=== PATIENT | male | born 1970 | race Caucasian/White ===

== ENCOUNTER 2017-12-04 03:39 | Emergency (ER) | payer OTHER ==
[~2017-12-04] VITALS: Ht 177.8 cm; Wt 108.9 kg
--- NOTE | 2017-12-04 03:56 | ED.ADGEN ---
Past History Past Medical History: Hypertension, Kidney Stones Adult General Chief Complaint Chief Complaint ".. It woke me at one am... I ve had kidney stones .. but nothing this bad.. " HPI HPI Patient is a 47 year old male who presents with severe Lt flank pain. Pt. reports he has had nausea and vomiting. Pain radiates down left flank into groin area. Patient does have a history of hypertension and has been noncompliant with his hypertensive meds. Patient does not follow-up primary care doctor at this time. Has not seen a urologist for years. No history of trauma. No history immunosuppression. Pt. has stopped his Lisinopril because of chronic cough. Review of Systems Review of Systems Constitutional: Denies fever or chills [] Eyes: Denies change in visual acuity, redness, or eye pain [] HENT: Denies nasal congestion or sore throat [] Respiratory: Denies cough or shortness of breath [] Cardiovascular: No additional information not addressed in HPI [] GI: Complaints of left flank abdominal pain, nausea, vomiting, . Denies bloody stools or diarrhea [] : Denies dysuria or hematuria [] Musculoskeletal: Denies back pain or joint pain [] Integument: Denies rash or skin lesions [] Neurologic: Denies headache, focal weakness or sensory changes [] Endocrine: Denies polyuria or polydipsia [] All other systems were reviewed and found to be within normal limits, except as documented in this note. Family History Family History Noncontributory Current Medications Current Medications Current Medications Medications (Trade) Dose Ordered Sig/Isabella Start Time Stop Time Status Last Admin Dose Admin Ciprofloxacin (Cipro) 500 mg 1X ONCE 12/04/17 06:00 12/04/17 06:01 DC 12/04/17 06:02 500 MG Diphenhydramine HCl (Benadryl) 25 mg STK-MED ONCE 12/04/17 06:18 12/04/17 06:31 DC Famotidine (Pepcid) 20 mg STK-MED ONCE 12/04/17 06:18 12/04/17 06:31 DC Ketorolac Tromethamine (Toradol) 30 mg 1X ONCE 12/04/17 04:45 12/04/17 05:21 DC Lactated Ringer's 1,000 ml @ 1,000 mls/hr Q1H 12/04/17 04:15 12/04/17 05:14 DC 12/04/17 04:24 1,000 MLS/HR Morphine Sulfate (Morphine 10mg Syringe) 10 mg STK-MED ONCE 12/04/17 04:15 12/04/17 04:16 DC Ondansetron HCl (Zofran Odt) 8 mg 1X ONCE 12/04/17 04:15 12/04/17 04:16 DC 12/04/17 04:23 8 MG Tamsulosin HCl (Flomax) 0.4 mg STK-MED ONCE 12/04/17 04:14 12/04/17 04:16 DC See nursing for home meds Allergies Allergies Allergies Coded Allergies Type Severity Reaction Last Updated Verified tetanus immune globulin Allergy Intermediate Rash 12/04/17 Yes Allergic to allergic to tetanus Physical Exam Physical Exam Constitutional: In moderately to severe acute distress, non-toxic appearance. [] HENT: Normocephalic, atraumatic, bilateral external ears normal, oropharynx moist, no oral exudates, nose normal. [] Eyes: PERRLA, EOMI, conjunctiva normal, no discharge. [] Neck: Normal range of motion, no tenderness, supple, no stridor. [] Cardiovascular: Tachycardia Heart rate regular rhythm, no murmur [] Lungs & Thorax: Bilateral breath sounds clear to auscultation [] Abdomen: Bowel sounds decreased, soft, no tenderness, no masses, no pulsatile masses. []Left flank tenderness Skin: Warm, diaphoretic, no erythema, no rash. [] Back: No tenderness, left flank CVA tenderness. [] Extremities: No tenderness, no cyanosis, no clubbing, ROM intact, no edema. [] Neurologic: Alert and oriented X 3, normal motor function, normal sensory function, no focal deficits noted. [] Psychologic: Affect anxious, judgement normal, mood normal. [] Current Patient Data Vital Signs Vital Signs Date Time Temp Pulse Resp B/P (MAP) Pulse Ox O2 Delivery O2 Flow Rate FiO2 12/04/17 05:44 53 18 160/88 (112) 97 12/04/17 05:14 Room Air 12/04/17 03:59 98.4 Lab Results Laboratory Tests Test 12/04/17 04:50 12/04/17 05:40 White Blood Count 11.4 x10^3/uL (4.0-11.0) H Red Blood Count 5.18 x10^6/uL (4.30-5.70) Hemoglobin 15.5 g/dL (13.0-17.5) Hematocrit 44.8 % (39.0-53.0) Mean Corpuscular Volume 87 fL (79-100) Mean Corpuscular Hemoglobin 30 pg (25-35) Mean Corpuscular Hemoglobin Concent 35 g/dL (31-37) Red Cell Distribution Width 13.9 % (11.5-14.5) Platelet Count 311 x10^3/uL (140-400) Neutrophils (%) (Auto) 85 % (31-73) H Lymphocytes (%) (Auto) 9 % (24-48) L Monocytes (%) (Auto) 5 % (0-9) Eosinophils (%) (Auto) 0 % (0-3) Basophils (%) (Auto) 0 % (0-3) Neutrophils # (Auto) 9.6 x10^3uL (1.8-7.7) H Lymphocytes # (Auto) 1.1 x10^3/uL (1.0-4.8) Monocytes # (Auto) 0.6 x10^3/uL (0.0-1.1) Eosinophils # (Auto) 0.0 x10^3/uL (0.0-0.7) Basophils # (Auto) 0.0 x10^3/uL (0.0-0.2) Prothrombin Time 11.0 SEC (9.4-11.4) Prothrombin Time INR 1.1 (0.9-1.1) PTT 26 SEC (23-33) Sodium Level 142 mmol/L (136-145) Potassium Level 3.5 mmol/L (3.5-5.1) Chloride Level 103 mmol/L (98-107) Carbon Dioxide Level 25 mmol/L (21-32) Anion Gap 14 (6-14) Blood Urea Nitrogen 12 mg/dL (8-26) Creatinine 1.3 mg/dL (0.7-1.3) Estimated GFR (Cockcroft-Gault) 58.9 Glucose Level 139 mg/dL (70-99) H Calcium Level 9.4 mg/dL (8.5-10.1) Total Bilirubin 0.4 mg/dL (0.2-1.0) Direct Bilirubin 0.1 mg/dL (0.0-0.2) Aspartate Amino Transferase (AST) 35 U/L (15-37) Alanine Aminotransferase (ALT) 66 U/L (16-63) H Alkaline Phosphatase 99 U/L (46-116) Total Protein 8.4 g/dL (6.4-8.2) H Albumin 4.1 g/dL (3.4-5.0) Urine Collection Type Unknown Urine Color Yellow Urine Clarity Hazy Urine pH 6.0 Urine Specific [place] 1.025 Urine Protein 100 mg/dl (NEG-TRACE) Urine Glucose (UA) Neg mg/dL (NEG) Urine Ketones (Stick) Trace mg/dL (NEG) Urine Blood Mod (NEG) Urine Nitrite Neg (NEG) Urine Bilirubin Neg (NEG) Urine Urobilinogen Dipstick 0.2 mg/dL (0.2 mg/dL) Urine Leukocyte Esterase Neg (NEG) Urine RBC 6-10 /HPF (0-2) Urine WBC 0 /HPF (0-4) Urine Squamous Epithelial Cells Occ /LPF Urine Bacteria 0 /HPF (0-FEW) Urine Mucus Slight /LPF EKG EKG My interpretation EKG shows a sinus bradycardia 54 bpm. No acute morphology.[] Radiology/Procedures Radiology/Procedures CT of abdomen shows left hydronephrosis and a proximal stone. He formal report when available. My interpretation of acute abdomen film shows multiple stones in kidney . No free air iunder the diaphragm. Old surgery clips. Push fruit juices for mild hypokalemia Course & Med Decision Making Course & Med Decision Making Pertinent Labs and Imaging studies reviewed. (See chart for details) Patient elects to follow-up with his urologist. Patient discharged on Cipro which he's taken before. Patient will take Tylenol and ibuprofen for pain.He will take Vicoprofen for marked pain. Clear fluid diet. Zofran as needed for nausea and vomiting. Patient must follow-up with primary and urologist. Patient also follow up with primary for hypertensive meds. Patient to take Flomax currently for smooth muscle relaxant. Patient take milk of magnesia for constipation as well as low magnesium level. Pt. given prescription for Bactrim given prior to discharge still some concern that he may be having allergy with Cipro. No wheezing. Possible mild erythemic rash- possible related to Morphine or even possible related to Cipro. [] Final Impression Final Impression 1. Left renal colic[] 2. Accelerated hypertension- 3. Hypomagnesemia Dragon Disclaimer Dragon Disclaimer This electronic medical record was generated, in whole or in part, using a voice recognition dictation system. VITO SHELL MD Dec 04, 2017 03:56
[2017-12-04] MEDS ORDERED: TAMSULOSIN 0.4 MG CAP.ER.24H. PO ONE (04:14)
[2017-12-04] MEDS ORDERED: KETOROLAC 30 MG/ML VIAL. ONE (04:14)
[2017-12-04] MEDS ORDERED: MORPHINE SULFATE 10 MG/ML SYRINGE. ONE (04:15)
[2017-12-04] MEDS: TAMSULOSIN 0.4 MG CAP.ER.24H. PO ONE (04:23)
[2017-12-04] MEDS: ONDANSETRON ODT 4 MG TAB.RAPDIS PO ONE (04:23)
[2017-12-04] MEDS: KETOROLAC 30 MG/ML VIAL. IV ONE ×2 (04:23→04:45)
[2017-12-04] MEDS: MORPHINE SULFATE 10 MG/ML SYRINGE. SQ ONE (04:24)
[2017-12-04] MEDS: IV RINGERS SOLUTION,LACTATED 1,000 ML IV SCH (04:24)
--- NOTE | 2017-12-04 04:57 | RAD ---
INDICATION: Severe left flank pain radiating to groin. Hx kidney stones COMPARISON: None. TECHNIQUE: Axial CT images were obtained through the abdomen and pelvis without intravenous contrast. Limited assessment of solid organ structures and vasculature secondary to lack of intravenous contrast. One or more of the following individualized dose reduction techniques were utilized for this examination: 1. Automated exposure control; 2. Adjustment of the mA and/or kV according to patient size; 3. Use of iterative reconstruction technique. FINDINGS: Moderate calcific atherosclerosis. Fat-containing left inguinal hernia. No intrahepatic bile duct dilation. Small fat-containing umbilical hernia. No peripancreatic fluid collection. Spleen unremarkable. Multiple bilateral nonobstructive renal stones are identified. Left-sided perinephric edema with hydronephrosis and hydroureter with 5 mm left proximal ureter stone. Urinary bladder is partially distended with mild prominence of the wall. There are some lobulated contour at the right kidney no right-sided hydronephrosis. No periappendiceal inflammation. No dilated loops of bowel to suggest obstruction. Degenerative changes of the spine. IMPRESSION: 1. Left-sided hydronephrosis and perinephric edema with left proximal ureter stone. There are multiple additional nonobstructive bilateral renal stones. 2. Urinary bladder is partially distended but does appear thick walled. Would correlate for possible causes such as cystitis although this could be a chronic finding. Electronically signed by: Jv Ortiz MD (12/04/2017 4:54 AM) [facility]
[2017-12-04 05:04] LABS: BASO % 0 % (0-3); EOS % 0 % (0-3); HEMATOCRIT 44.8 % (39.0-53.0); HEMOGLOBIN 15.5 g/dL (13.0-17.5); LYMPH # 1.1 x10^3/uL (1.0-4.8); LYMPH % 9 % (24-48); MEAN CORPUSCULAR HEMOGLOBIN 30 pg (25-35); MEAN CORPUSCULAR HGB CONC 35 g/dL (31-37); MEAN CORPUSCULAR VOLUME 87 fL (79-100); MONO # 0.6 x10^3/uL (0.0-1.1); MONO % 5 % (0-9); NEUT # 9.6 x10^3uL (1.8-7.7); NEUT % 85 % (31-73); PLATELET COUNT 311 x10^3/uL (140-400); RED BLOOD COUNT 5.18 x10^6/uL (4.30-5.70); RED CELL DISTRIBUTION WIDTH 13.9 % (11.5-14.5); WHITE BLOOD COUNT 11.4 x10^3/uL (4.0-11.0)
[2017-12-04 05:19] LABS: ALBUMIN 4.1 g/dL (3.4-5.0); CALCIUM 9.4 mg/dL (8.5-10.1); CREATININE 1.3 mg/dL (0.7-1.3); DIRECT BILIRUBIN 0.1 mg/dL (0.0-0.2); GFR 58.9; POTASSIUM 3.5 mmol/L (3.5-5.1); TOTAL BILIRUBIN 0.4 mg/dL (0.2-1.0); TOTAL PROTEIN 8.4 g/dL (6.4-8.2)
[2017-12-04 05:44] VITALS: BP 160/88
[2017-12-04] MEDS ORDERED: HYDR-79 PO (05:55)
[2017-12-04] MEDS ORDERED: TAMS0.4C97 PO (05:55)
[2017-12-04] MEDS ORDERED: CIPR500T94 PO (05:55)
[2017-12-04] MEDS ORDERED: ONDA8TAB12 PO (05:55)
[2017-12-04] MEDS: CIPROFLOXACIN HCL 500 MG TABLET PO ONE (06:02)
[2017-12-04 06:07] LABS: BILIRUBIN,URINE NEG (NEG); CLARITY,URINE HAZY; COLOR,URINE YELLOW; GLUCOSE,URINE NEG (NEG)
[2017-12-04 06:08] LABS: BACTERIA,URINE 0 /HPF (0-FEW); NITRITE,URINE NEG (NEG); SQUAMOUS EPITHELIAL CELL,UR OCC /LPF; UROBILINOGEN,URINE 0.2 mg/dL (0.2 mg/dL); WBC,URINE 0 /HPF (0-4)
[2017-12-04] MEDS ORDERED: diphenhydrAMINE HCL 25 MG CAPSULE PO ONE (06:18)
[2017-12-04] MEDS ORDERED: FAMOTIDINE 20 MG TABLET ONE (06:18)
[2017-12-04] MEDS: FAMOTIDINE 20 MG TABLET PO ONE (06:21)
[2017-12-04] MEDS: diphenhydrAMINE HCL 25 MG CAPSULE PO ONE (06:22)
--- NOTE | 2017-12-04 08:06 | RAD ---
Acute abdominal series to include a PA chest radiograph 12/04/2017 Clinical History: Severe left flank pain. A PA digital radiograph of the chest was obtained. Two supine and an erect AP digital radiographs of the abdomen/pelvis were obtained. No previous studies are available for comparison. The cardiac and mediastinal silhouettes are within normal limits in size and configuration. No pulmonary infiltrate is seen. No pleural effusion or pneumothorax is noted. The abdominal bowel gas pattern is nonobstructive. There is no evidence of free air. Calculi overlie both kidneys which measure 4 mm to 1 cm in size. A 4 mm calcification overlies the inferior aspect of the L3 transverse process. This likely represents a left ureteral calculus. Calcifications are seen within the pelvis consistent with phleboliths. Surgical clips are seen within the inguinal regions bilaterally. Degenerative changes are seen involving the thoracic and throughout the lumbar spine and both hips. Impression: 4 mm probable left ureteral calculus. Electronically signed by: Miguelito Knight MD (12/04/2017 8:02 AM) [facility]
--- NOTE | 2017-12-04 19:34 | EKG ---
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
== END 2017-12-04 06:30 | disposition home or self-care (01) ==
LOC: ER 03:39
DX: N23 Unspecified renal colic (principal); E83.42 Hypomagnesemia; I10 Essential (primary) hypertension
CPT/HCPCS: 36415; 74022; 74176; 80048; 80076; 81001; 85025; 85610; 85730; 93005; 96361; 96372; 96374; 99285; J1885; J2270; J7120; Q0162; Q0163

== ENCOUNTER 2021-03-03 08:28 | Inpatient (IN) | payer BC, OTHER ==
[~2021-03-03] VITALS: Ht 177.8 cm; Wt 118.0 kg
[~2021-03-03 08:28] MED LIST: CIPR500T94 PO; HYDR-1179 PO; ONDA8TAB12 PO; TAMS0.4C97 PO
[2021-03-03] MEDS ORDERED: ONDANSETRON PF 4 MG/2 ML VIAL. ONE (08:46)
[2021-03-03] MEDS ORDERED: ACETAMINOPHEN 500 MG TABLET PO ONE (08:46)
[2021-03-03] MEDS: IV NORMAL SALINE 1,000ML 1,000 ML IV SCH ×3 (09:00→17:00)
--- NOTE | 2021-03-03 09:02 | PHYS DOC ---
Past History Past Medical History: Hypertension, Kidney Stones Past Surgical History: Other Alcohol Use: None Drug Use: None Adult General Chief Complaint Chief Complaint: COUGH HPI HPI Patient is a 50-year-old male presenting for Covid-like symptoms. Reports onset was approximately 3 weeks ago without any known inciting event, ingestion, travel or known sick exposure. Nothing known makes better or worse. Patient reports he has had fluctuating upper respiratory tract symptoms, generalized body aches and occasional cramping in big muscles such as calf and forearm, also admits increased nausea and looser stools than usual in the past 48 hours. Admits he saw local urgent care last week and was diagnosed with an upper respiratory infection, states he was prescribed Augmentin but could not tolerate this medication and stopped after 48 hours. He has been at home quarantined but reports he has been more weak than usual and concerned prompting him to come in for evaluation. Patient is not vaccinated against COVID-19. Admits history of hypertension only which she has been compliant with all medication without any recent medication changes Review of Systems Review of Systems Fourteen body systems of review of systems have been reviewed. See HPI for pertinent positives and negative responses, other bateman all other systems are negative, non-pertinent or non-contributory Current Medications Current Medications Current Medications Medications (Trade) Dose Ordered Sig/Isabella Start Time Stop Time Status Last Admin Dose Admin Acetaminophen (Tylenol) 500 mg STK-MED ONCE 03/03/21 08:46 03/03/21 08:46 DC Ondansetron HCl (Zofran) 4 mg STK-MED ONCE 03/03/21 08:46 03/03/21 08:46 DC Allergies Allergies Allergies Coded Allergies Type Severity Reaction Last Updated Verified tetanus immune globulin Allergy Intermediate Rash 12/04/17 Yes Physical Exam Physical Exam Constitutional: Well developed, well nourished, no apparent distress but patient does look uncomfortable and tired HENT: Normocephalic, atraumatic, bilateral external ears normal, oropharynx moist, no oral exudates, nose normal. Eyes: PERRLA, EOMI, conjunctiva normal, no discharge. Neck: Normal range of motion, no tenderness, supple, no stridor. Cardiovascular: Heart rate regular, sinus rhythm, no murmurs rubs or gallops Lungs & Thorax: No respiratory distress or accessory muscle use of neck or abdomen noted, has scattered rales globally without any increased work of breathing Abdomen: Bowel sounds normal, soft, no tenderness, no masses, no pulsatile masses. Nonsurgical abdomen, no peritoneal signs Skin: Warm, dry, no erythema, no rash. Back: No tenderness, no CVA tenderness. Extremities: No tenderness, no cyanosis, no clubbing, ROM intact, no edema. Neurologic: Alert and oriented X 3, grossly normal motor & sensory function, no focal deficits noted. Psychologic: Affect normal, judgement normal, mood normal. Current Patient Data Vital Signs Vital Signs Date Time Temp Pulse Resp B/P (MAP) Pulse Ox O2 Delivery O2 Flow Rate FiO2 03/03/21 08:30 100.8 117 16 125/70 (88) 97 Room Air Vital Signs Date Time Temp Pulse Resp B/P (MAP) Pulse Ox O2 Delivery O2 Flow Rate FiO2 03/03/21 08:30 100.8 117 16 125/70 (88) 97 Room Air Lab Results Laboratory Tests Test 03/03/21 08:50 03/03/21 08:58 White Blood Count 9.1 x10^3/uL Red Blood Count 5.13 x10^6/uL Hemoglobin 15.8 g/dL Hematocrit 45.9 % Mean Corpuscular Volume 89 fL Mean Corpuscular Hemoglobin 31 pg Mean Corpuscular Hemoglobin Concent 35 g/dL Red Cell Distribution Width 14.2 % Platelet Count 181 x10^3/uL Neutrophils (%) (Auto) 82 % Lymphocytes (%) (Auto) 13 % Monocytes (%) (Auto) 5 % Eosinophils (%) (Auto) 0 % Basophils (%) (Auto) 0 % Neutrophils # (Auto) 7.4 x10^3uL Lymphocytes # (Auto) 1.2 x10^3/uL Monocytes # (Auto) 0.4 x10^3/uL Eosinophils # (Auto) 0.0 x10^3/uL Basophils # (Auto) 0.0 x10^3/uL Sodium Level 129 mmol/L Potassium Level 4.8 mmol/L Chloride Level 93 mmol/L Carbon Dioxide Level 20 mmol/L Anion Gap 16 Blood Urea Nitrogen 45 mg/dL Creatinine 2.0 mg/dL Estimated GFR (Cockcroft-Gault) 35.4 BUN/Creatinine Ratio 23 Glucose Level 118 mg/dL Lactic Acid Level 1.8 mmol/L Calcium Level 9.1 mg/dL Total Bilirubin 0.8 mg/dL Aspartate Amino Transf (AST/SGOT) 258 U/L Alanine Aminotransferase (ALT/SGPT) 350 U/L Alkaline Phosphatase 88 U/L Creatine Kinase 3081 U/L Troponin I Quantitative 0.022 ng/mL MN-Dkp-L-Type Natriuretic Peptide 6 pg/mL Total Protein 8.5 g/dL Albumin 4.2 g/dL Albumin/Globulin Ratio 1.0 Influenza Type A (Rapid) Negative Influenza Type B (Rapid) Negative SARS-CoV-2 Antigen (Rapid) Positive Current Medications Medications (Trade) Dose Ordered Sig/Isabella Route PRN Reason Start Time Stop Time Status Last Admin Dose Admin Acetaminophen (Tylenol) 500 mg STK-MED ONCE PO 03/03/21 08:46 03/03/21 08:46 DC Ondansetron HCl (Zofran) 4 mg STK-MED ONCE .ROUTE 03/03/21 08:46 03/03/21 08:46 DC Sodium Chloride 1,000 ml @ 1,000 mls/hr Q1H IV 03/03/21 09:00 03/03/21 09:59 DC 03/03/21 10:01 Ceftriaxone Sodium 1 gm/ Sodium Chloride 50 ml @ 100 mls/hr 1X ONCE IV 03/03/21 09:45 03/03/21 10:14 DC Azithromycin 500 mg/Sodium Chloride 250 ml @ 250 mls/hr 1X ONCE IV 03/03/21 09:45 03/03/21 10:44 03/03/21 09:59 Sodium Chloride 1,000 ml @ 1,000 mls/hr 1X ONCE IV 03/03/21 09:45 03/03/21 10:44 Acetaminophen (Tylenol) 650 mg 1X ONCE PO 03/03/21 09:45 03/03/21 09:46 DC Sodium Chloride 250 ml @ As Directed STK-MED ONCE .ROUTE 03/03/21 09:51 03/03/21 09:51 DC Sodium Chloride 50 ml @ As Directed STK-MED ONCE .ROUTE 03/03/21 09:51 03/03/21 09:51 DC Azithromycin (Zithromax) 500 mg STK-MED ONCE IV 03/03/21 09:51 03/03/21 09:51 DC Ceftriaxone Sodium (Rocephin) 1 gm STK-MED ONCE .ROUTE 03/03/21 09:51 03/03/21 09:51 DC Sodium Chloride 50 ml @ As Directed STK-MED ONCE .ROUTE 03/03/21 09:51 03/03/21 09:51 DC Ondansetron HCl (Zofran) 4 mg 1X ONCE IVP 03/03/21 10:15 03/03/21 10:16 DC 03/03/21 10:12 Ondansetron HCl (Zofran) 4 mg PRN Q6HRS PRN IVP NAUSEA/VOMITING 03/03/21 10:30 03/04/21 10:29 UNV Acetaminophen (Tylenol) 650 mg PRN Q4HRS PRN PO FEVER > 100.3'F 03/03/21 10:30 03/04/21 10:29 UNV Nitroglycerin (Nitrostat) 0.4 mg PRN Q5MIN PRN SL CHEST PAIN 03/03/21 10:30 03/04/21 10:29 UNV EKG EKG EKG ordered and interpreted by myself at 0929 hrs. as sinus rhythm at 95 bpm, unremarkable intervals, no axis deviation, no acute ischemic findings, no STEMI Radiology/Procedures Radiology/Procedures INDICATION: Reason: cough / Spl. Instructions: / History: COMPARISON: November 2017 FINDINGS: Single view of chest obtained. Focal opacity at the right greater than left lung base. Cardiomediastinal silhouette is near the upper limits of normal in size. IMPRESSION: * Focal opacity at right greater than left lung base which could be secondary to bilateral pneumonia but follow-up could be obtained to ensure that this appropriately resolves to exclude less common neoplastic causes Electronically signed by: Jv Ortiz MD (03/03/2021 9:21 AM) [id number] Heart Score C/O Chest Pain: No HEART Score for Chest Pain: HEART Score for Chest Pain Response (Comments) Value History Moderately Suspicious 1 ECG Normal 0 Age >45 - < 65 1 Risk Factors 1 or 2 Risk Factors 1 Troponin < Normal Limit 0 Total 3 Risk Factors: Risk Factors: DM, Current or recent (<one month) smoker, HTN, HLP, family history of CAD, obesity. Risk Scores: Risk Factors: DM, Current or recent (<one month) smoker, HTN, HLP, family history of CAD, obesity. Course & Med Decision Making Course & Med Decision Making Airway patent, breathing unremarkable, IV access and vitals obtained concerning for fever and tachycardia HPI, physical exam and comprehensive ER work-up concerning for sepsis with source being pneumonia. He is Covid positive. Also has electrolyte imbalance and kidney issues from dehydration, exacerbated from recent nausea and diarrhea IV fluids, antiemetics, antipyretics, and antibiotics administered with improvement in patient's symptoms. With that said, patient still not fit for departure home I contacted hospitalist at [facility] who agreed need for admission. I updated patient on plan of care that included hospital admission and he was amenable. All questions and concerns addressed prior to hospital admission for continued inpatient medical management Dragon Disclaimer Dragon Disclaimer This electronic medical record was generated, in whole or in part, using a voice recognition dictation system. Departure Departure: Impression: Primary Impression: PNA (pneumonia) Additional Impressions: Sepsis Electrolyte abnormality SERGIO (acute kidney injury) COVID-19 Disposition: 09 ADMITTED INPATIENT Admitting Physician: Renea Navarro Condition: STABLE Referrals: YULISSA FERREIRA (PCP) Problem Qualifiers KIMBERLEY MADERA DO Mar 03, 2021 09:02
--- NOTE | 2021-03-03 09:23 | RAD ---
INDICATION: Reason: cough / Spl. Instructions: / History: COMPARISON: November 2017 FINDINGS: Single view of chest obtained. Focal opacity at the right greater than left lung base. Cardiomediastinal silhouette is near the upper limits of normal in size. IMPRESSION: * Focal opacity at right greater than left lung base which could be secondary to bilateral pneumonia but follow-up could be obtained to ensure that this appropriately resolves to exclude less common ne oplastic causes Electronically signed by: Jv Ortiz MD (03/03/2021 9:21 AM) [id number]
[2021-03-03 09:26] LABS: BASO % 0 % (0-3); EOS % 0 % (0-3); HEMATOCRIT 45.9 % (39.0-53.0); HEMOGLOBIN 15.8 g/dL (13.0-17.5); LYMPH # 1.2 x10^3/uL (1.0-4.8); LYMPH % 13 % (24-48); MEAN CORPUSCULAR HEMOGLOBIN 31 pg (25-35); MEAN CORPUSCULAR HGB CONC 35 g/dL (31-37); MEAN CORPUSCULAR VOLUME 89 fL (79-100); MONO # 0.4 x10^3/uL (0.0-1.1); MONO % 5 % (0-9); NEUT # 7.4 x10^3uL (1.8-7.7); NEUT % 82 % (31-73); PLATELET COUNT 181 x10^3/uL (140-400); RED BLOOD COUNT 5.13 x10^6/uL (4.30-5.70); RED CELL DISTRIBUTION WIDTH 14.2 % (11.5-14.5); WHITE BLOOD COUNT 9.1 x10^3/uL (4.0-11.0)
--- NOTE | 2021-03-03 09:29 | EKG ---
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
[2021-03-03 09:31] LABS: CALCIUM 9.1 mg/dL (8.5-10.1); GFR 35.4; POTASSIUM 4.8 mmol/L (3.5-5.1)
[2021-03-03] MEDS ORDERED: IV NORMAL SALINE 1,000ML 1,000 ML IV ONE (09:45)
[2021-03-03] MEDS ORDERED: AZITHROMYCIN 500 MG in IV NORMAL SALINE 250ML 250 ML IV ONE (09:45)
[2021-03-03] MEDS ORDERED: ACETAMINOPHEN 325 MG TABLET PO ONE (09:45)
[2021-03-03 09:47] LABS: ALBUMIN 4.2 g/dL (3.4-5.0); TOTAL BILIRUBIN 0.8 mg/dL (0.2-1.0); TOTAL PROTEIN 8.5 g/dL (6.4-8.2)
[2021-03-03] MEDS ORDERED: IV NORMAL SALINE 250ML 250 ML ONE (09:51)
[2021-03-03] MEDS ORDERED: AZITHROMYCIN 500 MG VIAL. IV ONE (09:51)
[2021-03-03] MEDS ORDERED: cefTRIAXone SODIUM 1 GM VIAL ONE (09:51)
[2021-03-03] MEDS ORDERED: IV NORMAL SALINE 50ML 50 ML ONE ×2 (09:51)
[2021-03-03 09:53] LABS: INFLUENZA A PATIENT NEGATIVE (NEGATIVE); INFLUENZA B PATIENT NEGATIVE (NEGATIVE)
[2021-03-03] MEDS ORDERED: ONDANSETRON PF 4 MG/2 ML VIAL. IVP ONE (10:15)
[2021-03-03] MEDS ORDERED: NITROGLYCERIN SUBLINGUAL 0.4 MG BOTTLE OF 25. SL PRN (10:30)
[2021-03-03] MEDS ORDERED: ONDANSETRON PF 4 MG/2 ML VIAL. IVP PRN (10:30)
[2021-03-03] MEDS ORDERED: ACETAMINOPHEN 325 MG TABLET PO PRN (10:30)
[2021-03-03 12:45] VITALS: BP 116/64
[2021-03-03] MEDS ORDERED: IRBE1TAB7 PO (13:55)
--- NOTE | 2021-03-03 14:07 | NUR ---
NURSING NOTE ADMIT ADMIT TO ROOM 123 FOR COVID + PNEUMONIA, PT A&O CURRENTLY ON ROOM AIR AT 96%. STATES HE HAS BEEN SICK FOR 4 WEEKS OFF AND ON SEEN AT URGENT CARE AND USED ANTIBIOTICS PRIOR TO DIAGNOSIS OF COVID. PT STATED HE USES [facility] AND ONLY TAKES FLOMAX, IRBESARTAN, HCTZ. AMBREEN ANDREA
[2021-03-03] MEDS: ACETAMINOPHEN/CODEINE 300/30MG TABLET PO PRN ×2 (15:50→20:49)
[2021-03-03 16:22] VITALS: BP 143/75
[2021-03-03 17:24] LABS: CALCIUM 8.5 mg/dL (8.5-10.1); CREATININE 1.7 mg/dL (0.7-1.3); GFR 42.7; POTASSIUM 4.4 mmol/L (3.5-5.1)
[2021-03-03 17:29] LABS: ALBUMIN 3.6 g/dL (3.4-5.0); ALBUMIN/GLOBULIN RATIO 0.8 (1.0-1.7); TOTAL BILIRUBIN 0.6 mg/dL (0.2-1.0)
--- NOTE | 2021-03-03 17:41 | HP ---
ADMIT DATE: 03/03/2021 HISTORY OF PRESENT ILLNESS: The patient is a 50-year-old male patient who came to the Emergency Room with a complaint of the COVID-like symptoms. He reports onset was approximately 3 weeks ago without any known inciting event, ingestion, travel or known sick contact. He reports that he has had fluctuating upper respiratory tract symptoms, generalized body aches and occasional cramping in his big muscles such as calf and forearm. He also admits increasing nausea and looser stools than usual in the past 48 hours. Admits that he saw a local urgent care last week and was diagnosed with an upper respiratory tract infection and was prescribed Augmentin, but could not tolerate this medication and stopped taking it after 48 hours. He has been at home quarantined, but reports that he has been more weak than usual and concerned prompting him to come today for evaluation. The patient was not vaccinated for COVID-19. However, his was vaccinated. He was extensively investigated in the Emergency Room, has had lab work and imaging studies. His lab work showed his white cell count was normal. His chemistry showed he has hyponatremia and acute kidney injury and deranged liver enzymes and CK, and his coronavirus by rapid test was positive. His chest x-ray showed that there is focal opacity at the right greater than left lung base, which could be secondary to bilateral pneumonia, but followup could be obtained to ensure that this appropriately resolved to exclude these common neoplastic causes. PAST MEDICAL HISTORY: Significant for hypertension, hyperlipidemia, nephrolithiasis. PAST SURGICAL HISTORY: Significant for bilateral inguinal hernia repair and LASIK surgery. ALLERGIES: HE IS ALLERGIC TO TETANUS VACCINES AND INTOLERANT TO AUGMENTIN. MEDICATIONS: He is on the following medications: He is on tamsulosin 0.4 mg at bedtime and irbesartan/hydrochlorothiazide 300/12.5 mg daily. FAMILY HISTORY: He is only child. His father is still alive at age of 71, has Parkinson's disease due to Agent [place]. There is also diabetes and hypertension. His mother at age of 52 with unknown primary cancer. SOCIAL HISTORY: He is , has 1 daughter. He never smoked. He chewed tobacco since he was 11 years old. He drinks alcohol occasionally. Does not use any drugs. REVIEW OF SYSTEMS: As per history of present illness. PHYSICAL EXAMINATION: GENERAL: On arrival to the Emergency Room, he looked well and was clearly in no apparent respiratory distress. There was no pallor, jaundice, cyanosis or thyromegaly. No jugular venous distention. No limb edema. VITAL SIGNS: His heart rate was 117, blood pressure was 125/70, temperature was 100.8, respiratory rate was 16 and oxygen saturation was 97% on room air. HEAD, EYES, EARS, NOSE AND THROAT: Normocephalic, atraumatic. NECK: Supple. HEART: Normal first and second heart sounds, no gallop, rub or murmur. CHEST: Shows central trachea, equal bilateral expansion, air entry, vesicular breath sounds. I could not really appreciate any crepitation or rhonchi. ABDOMEN: Distended, soft, nontender. NEUROLOGIC: He was grossly intact. LABORATORY DATA: On arrival showed a white cell count 9100, hemoglobin 15.8, hematocrit 46, MCV 89 and platelet count of 181,000 with normal manual differential. His chemistry showed a serum sodium of 129, potassium 4.8, chloride 93, bicarbonate 20, anion gap of 16, BUN 45, creatinine 2, estimated GFR was 35 mL per minute. His glucose 118, calcium was 9.1, total bilirubin and alkaline phosphatase are normal. AST, ALT slightly elevated. His CK was 3081. First troponin was 0.022. Beta natriuretic peptide was 6 and total protein 8.5 and albumin was 4.1. His influenza A and B were negative. His coronavirus rapid testing was positive. His chest x-ray showed that there is a focal opacity in the right greater than left lung bases, which could be secondary to bilateral pneumonia, but followup could be obtained to ensure that this appropriately resolved to exclude these common neoplastic causes. ASSESSMENT AND PLAN: In summary, this is a 50-year-old male patient who was admitted with COVID-19 infection; however, he has bilateral pneumonia as well as acute kidney injury, hyponatremia and rhabdomyolysis. We will continue with IV antibiotic. I will stop his antihypertensive and diuretics and we will decide the further management accordingly. PRESTON DR: Allison TID: [id number]
[2021-03-03] MEDS: DEXAMETHASONE SOD PHOS 10 MG/ML VIAL. IV SCH (20:59)
[2021-03-03] MEDS: HEPARIN for SUB-Q USE 5,000 UNIT/ML VIAL. SQ SCH (20:59)
[2021-03-04] MEDS: IV NORMAL SALINE 1,000ML 1,000 ML IV SCH ×3 (03:15→23:18)
[2021-03-04] MEDS: HEPARIN for SUB-Q USE 5,000 UNIT/ML VIAL. SQ SCH ×3 (05:54→20:28)
[2021-03-04 06:11] VITALS: BP 137/79
[2021-03-04 06:24] LABS: BASO % 0 % (0-3); EOS % 0 % (0-3); HEMATOCRIT 41.6 % (39.0-53.0); HEMOGLOBIN 14.4 g/dL (13.0-17.5); LYMPH # 0.9 x10^3/uL (1.0-4.8); LYMPH % 14 % (24-48); MEAN CORPUSCULAR HEMOGLOBIN 31 pg (25-35); MEAN CORPUSCULAR HGB CONC 35 g/dL (31-37); MEAN CORPUSCULAR VOLUME 90 fL (79-100); MONO # 0.3 x10^3/uL (0.0-1.1); MONO % 4 % (0-9); NEUT # 5.3 x10^3uL (1.8-7.7); NEUT % 81 % (31-73); PLATELET COUNT 173 x10^3/uL (140-400); RED BLOOD COUNT 4.62 x10^6/uL (4.30-5.70); RED CELL DISTRIBUTION WIDTH 14.3 % (11.5-14.5); WHITE BLOOD COUNT 6.5 x10^3/uL (4.0-11.0)
[2021-03-04 06:41] LABS: ALBUMIN 3.4 g/dL (3.4-5.0); ALBUMIN/GLOBULIN RATIO 0.8 (1.0-1.7); C REACTIVE PROTEIN 35.2 mg/L (0-3.3); CALCIUM 8.7 mg/dL (8.5-10.1); CREATININE 1.4 mg/dL (0.7-1.3); GFR 53.4; POTASSIUM 5.1 mmol/L (3.5-5.1); TOTAL BILIRUBIN 0.5 mg/dL (0.2-1.0); TOTAL PROTEIN 7.9 g/dL (6.4-8.2)
[2021-03-04] MEDS: DEXAMETHASONE SOD PHOS 10 MG/ML VIAL. IV SCH (08:33)
[2021-03-04] MEDS: TAMSULOSIN 0.4 MG CAP.ER.24H. PO SCH (08:34)
[2021-03-04] MEDS: AZITHROMYCIN 250 MG TABLET. PO SCH (08:34)
[2021-03-04] MEDS ORDERED: DEXAMETHASONE SOD PHOS 4 MG/ML VIAL. IVP SCH (09:00)
[2021-03-04] MEDS ORDERED: BENZOCAINE/MENTHOL LOZNGE 18'S BOX. PO PRN (09:45)
[2021-03-04 11:37] VITALS: BP 112/61
[2021-03-04] MEDS: ACETAMINOPHEN/CODEINE 300/30MG TABLET PO PRN ×2 (14:33→20:28)
[2021-03-04 16:31] VITALS: BP 116/69
--- NOTE | 2021-03-04 17:41 | NUR ---
SHIFT NOTE Pt resting comfortably throughout day. Pt continues to sat well on room air and no complaints of pain. Pt only complaint is cough. Pt has cough drops for minor cough and tylenol #3 for breakthrough cough. Will continue to monitor. CC, RN
[2021-03-04 20:40] VITALS: BP 137/77
--- NOTE | 2021-03-04 21:00 | PN ---
DATE: 03/04/2021 SUBJECTIVE: The patient is resting, slightly propped up in bed, in no apparent respiratory distress. He continued to have cough and that is sometimes distressing, associated with chest pain during the episodes of cough; however, he denied any other complaint, in particular, he has no further episodes of nausea, vomiting. No diarrhea. PHYSICAL EXAMINATION: GENERAL: When I examined him, he looked well with no pallor, jaundice, cyanosis or thyromegaly. No jugular venous distention. No lower limb edema. VITAL SIGNS: His heart rate was 68, blood pressure is 112/61, temperature was 98.3, respiratory rate 20, and oxygen saturation was 96% on room air. HEAD, EYES, EARS, NOSE, AND THROAT: Normocephalic, atraumatic. NECK: Supple. HEART: Showed normal first and second heart sounds. No gallop or murmur. CHEST: Shows central trachea, equal bilateral chest expansion, air entry, vesicular breath sounds with bilateral basal crepitation posteriorly. I could not appreciate any rhonchi. ABDOMEN: Distended, soft, nontender. NEUROLOGIC: He is grossly intact. His intake and output incompletely recorded. LABORATORY DATA: Showed a white cell count of 6500, hemoglobin 14, hematocrit 42, MCV 90 and platelet count of 173,000 with a manual differential showed 81% polymorphs, 14% lymphocytes and 4% monocytes. Serum sodium has improved, today it is 133; potassium 5.1; chloride 100; bicarbonate 23; anion gap of 10; BUN 32; creatinine 1.4. Estimated GFR was 53 mL per minute. His glucose 123, calcium was 8.7. Total bilirubin and alkaline phosphatase are normal. Total protein 7.9, albumin 3.4. His C-reactive protein was 35 mg/L and D-dimer was 0.82 mg/dL. ASSESSMENT: 1. Coronavirus infection versus pneumonia. 2. Possible community-acquired pneumonia. 3. Acute kidney injury, improving. His creatinine is coming down from 2 to 1.4. 4. Hyponatremia, improving slowly from 129 up to 133. He has also high anion gap metabolic acidosis, improving. His anion gap is down from 16 to 10. Has deranged liver enzymes that are actually improving. He has also mild rhabdomyolysis. PLAN: My plan is to continue with IV antibiotic. Continue with dexamethasone. Continue with heparin for DVT prophylaxis. I will continue holding his hydrochlorothiazide and irbesartan. Repeat all his labs again tomorrow and given that he did not require any oxygen, could be discharged home on a tapering course of steroids and also to continue treatment with oral antibiotic. JADON DR: Allison TID: [id number]
[2021-03-05] MEDS: HEPARIN for SUB-Q USE 5,000 UNIT/ML VIAL. SQ SCH (05:54)
[2021-03-05 06:06] VITALS: BP 144/75
[2021-03-05] MEDS ORDERED: ALBU2.5V8 IH (06:08)
[2021-03-05] MEDS ORDERED: ALBUTEROL SULFATE 2.5 MG/3 ML NEBU. IH PRN (06:15)
[2021-03-05 06:25] LABS: ALBUMIN 3.1 g/dL (3.4-5.0); ALBUMIN/GLOBULIN RATIO 0.7 (1.0-1.7); CALCIUM 8.6 mg/dL (8.5-10.1); CREATININE 1.2 mg/dL (0.7-1.3); GFR 63.8; POTASSIUM 4.4 mmol/L (3.5-5.1); TOTAL BILIRUBIN 0.3 mg/dL (0.2-1.0); TOTAL PROTEIN 7.4 g/dL (6.4-8.2)
[2021-03-05] MEDS: DEXAMETHASONE SOD PHOS 10 MG/ML VIAL. IV SCH (08:52)
[2021-03-05] MEDS: TAMSULOSIN 0.4 MG CAP.ER.24H. PO SCH (08:54)
[2021-03-05] MEDS: IV NORMAL SALINE 1,000ML 1,000 ML IV SCH (08:54)
[2021-03-05] MEDS: AZITHROMYCIN 250 MG TABLET. PO SCH (08:54)
--- NOTE | 2021-03-05 10:16 | DS ---
DATE OF DISCHARGE: 03/05/2021 ATTENDING PHYSICIAN: Dr. Navarro. FINAL DISCHARGE DIAGNOSES: 1. COVID pneumonia, bibasilar. 2. Essential hypertension. 3. Mild hyponatremia. 4. Hyperlipidemia. 5. History of nephrolithiasis. HISTORY AND PHYSICAL: The patient is a pleasant 50-year-old gentleman who has been sick for the last several weeks. has had similar symptoms of cough, congestion. He was diagnosed with COVID pneumonia and admitted for further treatment and evaluation. PHYSICAL EXAMINATION: Please see the dictated note. PERTINENT LABORATORY AND X-RAY STUDIES: Serology positive on the for coronavirus, hemoglobin 15.8 gram, white count 6500. Electrolytes: Sodium 132, replaced up to 136, creatinine was 1.7, repeated was down to 1.2 mg/dL. Transaminases slightly elevated. Nonfasting blood sugar 106. Creatine kinase was 3900, came down to 1100. COURSE IN HOSPITAL: The patient was admitted. He did not require supplemental oxygen. He was started on empiric Rocephin along with Decadron. He did well. He had a mild nonproductive cough. By the third hospital day when I saw him, he was improving. He was afebrile, blood pressure was 137/77, pulse was regular and oxygen saturation 96% on room air. I examined him, his lungs showed minimal rhonchi at the bases, but he had good air movement without any wheezing or rales. I offered a choice to go home. He felt this was reasonable. I discharged him with cephalexin 500 mg p.o. t.i.d. for 7 more days, prednisone 40 mg p.o. daily and continuation of the home meds. He should continue his scheduled Ventolin inhaler, his irbesartan and hydrochlorothiazide 1 daily and Flomax 0.4 mg daily. I suggested a followup visit with Lukas Bañuelos as scheduled. He was recommended to quarantine for the next 10 days from today. He has some [facility] paperwork which he can bring him into the office for filling the necessary paperwork. He was discharged then from our hospital in stable condition with explicit drug and followup care. The total discharge time is [address]: Prasanth TID: [id number] CC: GHASSAN WRIGHT
--- NOTE | 2021-03-05 10:57 | NUR ---
discharge note pt discharged at 1040 via wheel chair accompanied by staff member to spouse vehicle. pt given written and verbal instructions with verbal statement of under standing achieved.
== END 2021-03-05 10:59 | disposition home or self-care (01) | DRG 177 ==
LOC: ER 08:28 → 1 SOUTH 10:21
PROVIDERS: ADMIT Internal Medicine; ATTEND Internal Medicine
DX: U07.1 COVID-19 (principal); J12.82 Pneumonia due to coronavirus disease 2019; M62.82 Rhabdomyolysis; E87.2 Acidosis; E87.1 Hypo-osmolality and hyponatremia; N17.9 Acute kidney failure, unspecified; J06.9 Acute upper respiratory infection, unspecified; E87.8 Other disorders of electrolyte and fluid balance, not elsewhere classified; E78.5 Hyperlipidemia, unspecified; I10 Essential (primary) hypertension; Z87.442 Personal history of urinary calculi; Z88.1 Allergy status to other antibiotic agents; Z88.7 Allergy status to serum and vaccine; Z82.49 Family history of ischemic heart disease and other diseases of the circulatory system; Z82.0 Family history of epilepsy and other diseases of the nervous system; Z83.3 Family history of diabetes mellitus
CPT/HCPCS: 36415; 71045; 80053; 82550; 83605; 83880; 84484; 85025; 85379; 86140; 87040; 87426; 87804; 93005; 96365; 96366; 96368; 96375; J0456; J0696; J1100; J1644; J2405; J7050; 99285-25; J7030

== ENCOUNTER → 2021-03-18 | Outpatient (CLI) | payer BC ==
[2021-03-05 06:06] VITALS: BP 144/75
[~2021-03-18] MED LIST changes: +ALBU2.5V8 IH; +IRBE1TAB7 PO
--- NOTE | 2021-03-18 13:18 | RAD ---
XR CHEST 2V History: Shortness of breath, pneumonia, Covid. Comparison: 10/31/2020 Technique: PA and lateral chest radiographs. Findings: The lungs are adequately inflated. There is hazy right greater than left lower lobe airspace opacity, slightly less conspicuous than comparison which may be based on differences in technique. No pleural effusion or pneumothorax. Cardiac mediastinal silhouette and pulmonary vasculature are within normal limits. Degenerative changes of the thoracic spine. Soft tissues are unremarkable. Impression: 1. Hazy right greater than left lower lobe airspace opacity, slightly less conspicuous than comparis on which may be based on differences in technique. Findings could represent multifocal pneumonia in t he setting of Covid infection. Recommend follow-up radiographs in 6-8 weeks to ensure resolution. Electronically signed by: Jeremy Cook MD (03/18/2021 1:16 PM) [id number]
== END ==
LOC: RAD 12:09
PROVIDERS: ATTEND Physician Assistant Medical
DX: J18.9 Pneumonia, unspecified organism (principal)
CPT/HCPCS: 71046

== ENCOUNTER → 2021-03-19 | Outpatient (CLI) | payer BC ==
[2021-03-05 06:06] VITALS: BP 144/75
--- NOTE | 2021-03-19 16:01 | RAD ---
PQRS Compliance Statement: One or more of the following individualized dose reduction techniques were utilized for this examinat ion: 1. Automated exposure control 2. Adjustment of the mA and/or kV according to patient size 3. Use of iterative reconstruction technique CT THORAX WO 03/19/2021 11:33 AM Indication: Pneumonia COMPARISON: Chest radiograph 03/10/2021 TECHNIQUE: Multiple axial CT images of the chest were obtained without intravenous contrast. Coronal and sagittal reformats are provided. FINDINGS: There is patchy subpleural groundglass opacity identified within the posterior basal segment right lo wer lobe which may represent pneumonitis of infectious/inflammatory etiology. Similar findings identi fied to lesser extent involving the lateral basal segment right lower lobe, although lateral basal se gment left lower lobe and inferior lingula. Few scattered groundglass nodules are present. Solid nonc alcified pulmonary nodules identified along the minor fissure measuring up to 4 mm (series 2, image 4 9). No pleural effusions, pulmonary vascular congestion or pneumothorax. Heart size is within normal limits. There is no pericardial effusion. Note suspicious thoracic lymphadenopathy. Moderate coronary artery vascular calcifications are present. Upper abdomen is normal in appearance. Thoracic esophagu s is normal in appearance. No suspicious osseous abnormality is identified. IMPRESSION: 1. Groundglass peripheral wedge-shaped opacity identified within the posterior basal segment right lo wer lobe and to a lesser extent involving the left lower lobe and inferior lingula. Consideration may be given for pneumonitis of infectious/inflammatory etiology. 3 month follow-up chest CT is requeste d to ensure resolution. Electronically signed by: Lacy Castro MD (03/19/2021 3:58 PM) [id number]
== END ==
LOC: CT 11:26
PROVIDERS: ATTEND Physician Assistant Medical
DX: R91.8 Other nonspecific abnormal finding of lung field (principal); J18.9 Pneumonia, unspecified organism; I25.10 Atherosclerotic heart disease of native coronary artery without angina pectoris
CPT/HCPCS: 71250

== ENCOUNTER → 2021-03-21 | Outpatient (CLI) | payer BC ==
[2021-03-05 06:06] VITALS: BP 144/75
[2021-03-21] MEDS: IOHEXOL 350 MG/ML 100 ML VIAL. IV ONE (08:16)
--- NOTE | 2021-03-21 08:42 | RAD ---
CTA CHEST INDICATION: ELEVATED D-DIMER, COUGH, SOA Comparison: CT 03/19/2021. TECHNIQUE: Following the uneventful administration of intravenous contrast, 100 cc Omnipaque 350, axi al CT sections were obtained through the lungs and upper abdomen. Multiplanar reconstructions and MIP images were obtained. RS compliance statement: One or more of the following individualized dose reduction techniques were utilized for this examinat ion: 1. Automated exposure control 2. Adjustment of the mA and/or kV according to patient size 3. Use of iterative reconstruction technique FINDINGS: Pulmonary arteries: No evidence of pulmonary thromboembolic disease. Lungs and Airways: Mild scattered groundglass opacities. No abnormality of the central airways. Pleura: The pleural spaces are normal. Heart and Mediastinum: The visualized thyroid is normal in size and attenuation. No axillary or supra clavicular lymphadenopathy. No mediastinal, hilar or retrocrural lymphadenopathy. Normal cardiac size . No pericardial effusion. Coronary artery atherosclerotic disease. Normal caliber thoracic aorta. Abdomen: Limited images through the upper abdomen show no abnormality of the visualized organs. Bones and Soft Tissues: The visualized bones and chest wall soft tissues are within normal limits. IMPRESSION: 1. No evidence of pulmonary thromboembolic disease. 2. Mild scattered groundglass opacities, likely representing an infectious/inflammatory process. 3. Coronary artery atherosclerotic disease. Electronically signed by: Garland Shah MD (03/21/2021 8:40 AM) [id number]
== END ==
LOC: CT 07:54
PROVIDERS: ATTEND Physician Assistant Medical
DX: R91.8 Other nonspecific abnormal finding of lung field (principal); I25.10 Atherosclerotic heart disease of native coronary artery without angina pectoris; R79.1 Abnormal coagulation profile
CPT/HCPCS: 71275; Q9967

== ENCOUNTER → 2021-04-07 | Outpatient (CLI) | payer BC ==
--- NOTE | 2021-04-07 15:13 | RAD ---
AP and Lateral Views of the Chest 04/07/2021 1:57 PM Indication: Reason: COUGH, SHORTNESS OF BREATH. COVID X2 MTHS AGO, / Spl. Instructions: / History: Comparison: Chest radiograph April 07, 2021 Findings: Minimal residual opacity in the right medial lung base noted. This is grossly unchanged. Th ere is no new focal consolidation or infiltrate identified. The cardiomediastinal silhouette is withi n normal limits. There is no evidence of pneumothorax or pleural effusion. No acute osseous abnormali ties are identified. Impression: Minimal residual opacity, right medial lung base, overall similar to comparison study. Electronically signed by: Ronald Foster MD (04/07/2021 3:10 PM) [id number]
== END ==
LOC: RAD 13:50
PROVIDERS: ATTEND Physician Assistant Medical
DX: R05.9 Cough, unspecified (principal)
CPT/HCPCS: 71046